=== PATIENT | female | born 1985 | race Caucasian/White ===

== ENCOUNTER 2017-06-15 18:05 | Emergency (ER) | payer SELFPAY ==
[~2017-06-15 18:05] MED LIST: ASPI81EC97 PO; GABA-560 PO; LISI10TA11 PO; METF1000 PO; NORE0.3523 PO; OMEP40EC1 PO; SYN.05 PO
--- NOTE | 2017-06-15 19:40 | NUR ---
PATIENT LEFT WITHOUT BEING SEEN BY DR. BAIRD. NO FURTHER CARE PROVIDED FOR PATIENT.
== END 2017-06-15 19:40 | disposition left against medical advice (07) ==
LOC: MED 18:05
DX: Z53.21 Procedure and treatment not carried out due to patient leaving prior to being seen by health care provider (principal)

== ENCOUNTER 2018-06-24 13:38 | Emergency (ER) | payer OTHER ==
[~2018-06-24] VITALS: Ht 170.2 cm; Wt 116.6 kg
[2018-06-24 13:42] VITALS: BP 139/97
--- NOTE | 2018-06-24 13:46 | NUR ---
PT AMBULATED TO ER BED 03
--- NOTE | 2018-06-24 13:49 | NUR ---
32/F BIB FAMILY c/o RIGHT HAND PAIN RADIATING TO RFA X 3 DAYS. [employer] profession, several years. DENIES TRAUMA.hx---DM, inactive thyroid, high triglycerides.02/05 AT THIS TIME; VSS; PATIENT POSITIONED FOR COMFORT; HOB ELEVATED; BEDRAILS UP X2; BED DOWN. ER MD MADE AWARE OF PT STATUS.
[2018-06-24] MEDS ORDERED: KETOROLAC 60 MG/2 ML VIAL IM ONE (14:50)
[2018-06-24 15:20] VITALS: BP 127/77
--- NOTE | 2018-06-24 15:20 | NUR ---
Patient discharged with v/s stable. Written and verbal after care instructions given and explained. Patient alert, oriented and verbalized understanding of instructions. Ambulatory with steady gait. All questions addressed prior to discharge. ID band removed. Patient advised to follow up with PMD. Rx of naproxyn given. Patient educated on indication of medication including possible reaction and side effects. Opportunity to ask questions provided and answered.
== END 2018-06-24 15:20 | disposition home or self-care (01) ==
LOC: MED 13:38
DX: G56.01 Carpal tunnel syndrome, right upper limb (principal); J45.909 Unspecified asthma, uncomplicated; E11.9 Type 2 diabetes mellitus without complications; E07.9 Disorder of thyroid, unspecified; Z88.5 Allergy status to narcotic agent; Z90.49 Acquired absence of other specified parts of digestive tract; Z79.82 Long term (current) use of aspirin; Z79.899 Other long term (current) drug therapy; Z79.84 Long term (current) use of oral hypoglycemic drugs
CPT/HCPCS: 29125; 96372; 99283; J1885

== ENCOUNTER 2022-07-01 20:25 | Emergency (ER) | payer OTHER ==
[~2022-07-01] VITALS: Ht 170.2 cm; Wt 122.5 kg
[~2022-07-01 20:25] MED LIST changes: -LISI10TA11 PO; +LISI10TA30 PO; +METF-1274 PO; -METF1000 PO; -OMEP40EC1 PO; +OMEP40EC24 PO
[2022-07-01 21:08] VITALS: BP 139/80
--- NOTE | 2022-07-01 21:11 | NUR ---
TO LOBBY A/W BED AMBULATORY
[2022-07-01] MEDS ORDERED: KETOROLAC 30 MG/ML VIAL IM ONE (21:25)
--- NOTE | 2022-07-01 21:50 | NUR ---
SLING X1 APPLIED TO PATIENTS RIGHT ARM. WNL. CMS CHECKED BEFORE/AFTER.
[2022-07-01] MEDS ORDERED: NAPR-54 PO (22:10)
[2022-07-01] MEDS ORDERED: CYCL-711 PO (22:10)
[2022-07-01] MEDS ORDERED: KETOROLAC 30 MG/ML VIAL ONE (23:57)
[2022-07-02 00:03] VITALS: BP 119/79
--- NOTE | 2022-07-02 00:03 | NUR ---
Patient discharged with v/s stable. Written and verbal after care instructions given and explained. Patient alert, oriented and verbalized understanding of instructions. Ambulatory with steady gait. All questions addressed prior to discharge. ID band removed. Patient advised to follow up with PMD. Rx of NAPROSYN, FLEXIREL given. Patient educated on indication of medication including possible reaction and side effects. Opportunity to ask questions provided and answered.
== END 2022-07-02 00:03 | disposition home or self-care (01) ==
LOC: MED 20:25
DX: S46.811A Strain of other muscles, fascia and tendons at shoulder and upper arm level, right arm, initial encounter (principal); J45.909 Unspecified asthma, uncomplicated; E11.9 Type 2 diabetes mellitus without complications; Z79.84 Long term (current) use of oral hypoglycemic drugs; Z79.82 Long term (current) use of aspirin; Z88.5 Allergy status to narcotic agent; Z79.899 Other long term (current) drug therapy; X58.XXXA Exposure to other specified factors, initial encounter; Y93.89 Activity, other specified; Y92.89 Other specified places as the place of occurrence of the external cause; Y99.8 Other external cause status
CPT/HCPCS: 73030; 96372; 99283; J1885